=== PATIENT | female | born 1995 | race Caucasian/White ===

== ENCOUNTER 2025-03-31 00:05 | Emergency (ER) | payer OTHER ==
[~2025-03-31] VITALS: Ht 162.6 cm; Wt 57.1 kg
[2025-03-31 02:06] LABS: KETONE, URINE AUTO RFX NEGATIVE (NEGATIVE); NITRITE, URINE AUTO RFX NEGATIVE (NEGATIVE); RBC, URINE AUTO RFX 3 /HPF (0-3); SQUAM EPITHELIAL CELL UR AURFX 13 /HPF (0-6)
[2025-03-31 02:08] LABS: LEUKOCYTE ESTERASE UR AUTO RFX 3+ (NEGATIVE); WBC, URINE AUTO RFX 128 /HPF (0-3)
[2025-03-31] MEDS: NS (Normal Saline) 0.9% 1,000 ML IV ONE (03:16)
[2025-03-31] MEDS: KETOROLAC 30 MG/ML 1 ML VIAL IV ONE (03:16)
[2025-03-31 03:30] LABS: BASO # 0.0 10^3/uL (0.0-0.2); BASO % 0.4 % (0.0-1.0); EOS # 0.0 10^3/uL (0.0-0.5); EOS % 0.4 % (0.0-3.0); LYMPH # 1.5 10^3/uL (1.5-5.0); LYMPH % 33.0 % (24.0-44.0); MONO # 0.3 10^3/uL (0.0-0.8); MONO % 6.0 % (2.0-8.0); NEUTROPHILS # 2.7 10^3/uL (1.5-8.5); NEUTROPHILS % 60.0 % (36.0-66.0); PLATELET COUNT, AUTOMATED 300 10^3/uL (150-450)
[2025-03-31 03:55] LABS: CALCIUM LEVEL 9.0 MG/DL (8.5-10.1); CARBON DIOXIDE LEVEL 27 MMOL/L (20-31); CHLORIDE LEVEL 105 MMOL/L (98-107); CREATININE FOR GFR 0.71 MG/DL (0.55-1.30); GLOMERULAR FILTRATION RATE > 90.0 (>60); MAGNESIUM LEVEL 2.1 MG/DL (1.8-2.4); POTASSIUM SERUM 4.8 MMOL/L (3.5-5.1); SODIUM LEVEL 139 MMOL/L (136-145)
[2025-03-31 04:00] LABS: CPK CREATINE PHOSPHOKINASE 64 U/L (34-145)
[2025-03-31] MEDS ORDERED: ISOVUE-370 76% 100 ML VIAL As Ordered ONE (05:08)
[2025-03-31] MEDS ORDERED: CEFD1CAP9 PO (06:38)
[2025-03-31 06:45] VITALS: BP 90/52; TEMP 97.1; O2SAT 98
[2025-03-31] MEDS: CEFDINIR 300 MG CAP PO ONE (06:56)
== END 2025-03-31 06:55 | disposition home or self-care (01) ==
LOC: M ED 00:05
DX: N10 Acute pyelonephritis (principal)
CPT/HCPCS: 74177; 80048; 81001; 82550; 83605; 83735; 85025; 87086; 87486; 87581; 87633; 87798; 96361; 96374; 99284; J1885; Q9967